=== PATIENT | male | born 1945 | race African-American/Black ===

== ENCOUNTER 2019-03-21 20:14 | Inpatient (IN) | payer OTHER, MEDICARE ==
[~2019-03-21] VITALS: Ht 170.2 cm; Wt 70.0 kg
[2019-03-21 20:29] LABS: Hematocrit 42.8 % (37.0-53.0); Hemoglobin 14.6 g/dL (13.5-17.5); Mean Corpuscular HGB 30.9 pg (26.0-34.0); Mean Corpuscular HGB Conc 34.1 g/dL (31.5-36.5); Mean Corpuscular Volume 91 fL (80-100); Mean Platelet Volume 9.9 fL (9.1-12.4); Platelet Count 315 K/mm3 (150-400); RDW Coefficient Variation 13.2 % (11.7-14.2); RDW Standard Deviation 44.2 fL (35.1-46.3); Red Blood Cell Count 4.73 M/mm3 (4.30-5.90); White Blood Cell Count 20.59 K/mm3 (4.00-11.30)
[2019-03-21 20:44] LABS: International Normalized Ratio 0.98; Prothrombin Time Results 10.4 Sec (9.7-11.5)
[2019-03-21] MEDS ORDERED: AMLO5 PO (20:47)
[2019-03-21] MEDS ORDERED: NAPR500ERA PO (20:48)
[2019-03-21] MEDS ORDERED: Vitamin D2000 UNIT PO (20:48)
[2019-03-21 20:49] LABS: Alanine Aminotransfer (ALT/SGP 23 U/L (12-78); Albumin, Blood 4.3 g/dL (3.4-5.0); Albumin/Globulin Ratio 1.3 (0.8-1.8); Alk Phos 71 U/L (50-136); Anion Gap 9 mmol/L (6-16); Aspartate Aminotrans (AST/SGOT 29 U/L (12-37); Bilirubin, Total 0.5 mg/dL (0.1-1.0); Blood Urea Nitrogen 18 mg/dL (8-24); Bun/Creatinine Ratio 14.2 (12.0-20.0); CHOL/HDL RATIO 5.7; CO2, Blood 24 mmol/L (21-32); Calcium, Blood 9.5 mg/dL (8.5-10.1); Chloride, Blood 108 mmol/L (98-108); Cholesterol 228 mg/dL (50-200); Creatinine, Blood 1.27 mg/dL (0.60-1.20); Globulin, Blood 3.3 g/dL (2.2-4.0); Glomerular Filtration Rate 59 (60-); Glucose, Blood 119 mg/dL (70-99); HDL Cholesterol 40 mg/dL (>39); LDL/HDL RATIO 3.7; Low Density Lipoprotein Chol 150 mg/dL (0-110); Magnesium, Blood 2.1 mg/dL (1.6-2.4); Potassium, Blood 3.5 mmol/L (3.5-5.5); Sodium, Blood 141 mmol/L (136-145); Total Protein, Blood 7.6 g/dL (6.4-8.2); Triglycerides 191 mg/dL (30-160); Troponin I 0.104 ng/mL (0.000-0.040); Very Low Density Lipoprot Chol 38 mg/dL (6-32)
--- NOTE | 2019-03-21 21:40 | NUR ---
ADMIT PT ARRIVES TO ICU 7 VIA BED FROM [facility] FOR STEMI WITH STENT TO MID RCA. HE IS ALERT AND ORIENTED X 3, DENIES CP/PRESSURE, DENIES SOB/DYSPNEA, DENIES NUMBNESS/TINGLING, DENIES N/V. SPEAKING IN FULL SENTANCES, LUNGS CLEAR THROUGHOUT, SATS MID TO HIGH 90S ON ROOM AIR, NO VISIBLE INCREASED WORK OF BREATHING IS NOTED. HRR, SINUS ON MONITOR WITH OCCASIONAL PVCS NOTED, PULSES FULL X 4 EXTREMITIES, SKIN PWD, NO EDEMA NOTED. ABD SOFT, NORMOACTIVE BOWEL TONES NOTED. PT VOIDS CLEAR YELLOW URINE WITHOUT DIFFICULTY. RIGHT GROIN ACCESS SITE NOTED, DRESSING CDI, SCANT AMOUNT OF BLEEDING NOTED AT INSERTION BUT NOT ACTIVE AT THIS TIME, NO VISIBLE BRUISING OR REDNESS, SITE IS SOFT. SPOUSE ARRIVES TO BEDSIDE, STENT CARD PROVIDED TO PT AND SPOUSE, INSTRUCTED LAMINATE, MAKE COPIES, AND TO KEEP IN WALLET, UNDERSTANDING VERBALIZED.
[2019-03-21 23:12] LABS: Troponin I 0.825 ng/mL (0.000-0.040)
--- NOTE | 2019-03-21 23:20 | NUR ---
PTT GREATER THAN 139, PTT REORDERD FOR 0100, SHEATH SITE CONTINUES TO REMAIN STABLE, DRESSING CDI, NO NEW BLEEDING IS NOTED, SITE SOFT, NO SWELLING. PT CONTINUES TO DENY CP/PRESSURE, DENIES SOB/DYSPNEA, STATES THAT HE FEELS WELL AT THIS TIME
--- NOTE | 2019-03-22 01:13 | NUR ---
PTT REMAINS GREATER THAN 40, VITALS REMAIN STABLE, GROIN ACCESS SITE CONTINUES STABLE, PTT REORDERED FOR 0300 WILL CONTINUE TO MONITOR. PT RESTING QUIETLY CONTINUES TO DENY COMPLAINTS AT THIS TIME.
[2019-03-22 03:29] LABS: BASOPHILS ABSOLUTE AUTO 0.03 K/mm3 (0.00-0.23); BASOPHILS PERCENT AUTO 0 % (0-2); EOSINOPHILS ABSOLUTE AUTO 0.01 K/mm3 (0.00-0.68); EOSINOPHILS PERCENT AUTO 0 % (0-6); Hemoglobin 13.2 g/dL (13.5-17.5); IMMATURE GRAN ABSOLUTE AUTO 0.03 K/mm3 (0.00-0.10); IMMATURE GRAN PERCENT AUTO 0 % (0-1); LYMPHOCYTES PERCENT AUTO 15 % (21-46); MONOCYTES ABSOLUTE AUTO 0.69 K/mm3 (0.16-1.47); MONOCYTES PERCENT AUTO 6 % (4-13); Mean Corpuscular HGB 30.8 pg (26.0-34.0); Mean Corpuscular HGB Conc 33.8 g/dL (31.5-36.5); Mean Corpuscular Volume 91 fL (80-100); Mean Platelet Volume 9.5 fL (9.1-12.4); NEUTROPHILS ABSOLUTE AUTO 9.87 K/mm3 (1.96-9.15); NEUTROPHILS PERCENT AUTO 79 % (41-73); Platelet Count 249 K/mm3 (150-400); RDW Coefficient Variation 13.3 % (11.7-14.2); RDW Standard Deviation 44.4 fL (35.1-46.3); Red Blood Cell Count 4.29 M/mm3 (4.30-5.90); White Blood Cell Count 12.43 K/mm3 (4.00-11.30)
--- NOTE | 2019-03-22 03:50 | NUR ---
PTT IS LESS THAN 40, SBP HAS BEEN CONSISTENTLY LESS THAN 160, GROIN ACCESS SITE REMAINS STABLE, HIGH SCHOOL PRINCIPAL NOTIFIED OF PT MEETING CRITERIA FOR SHEATH REMOVAL AT THIS TIME. PLAN TO REMOVE SHEATH WITH HIGH SCHOOL PRINCIPAL.
[2019-03-22 03:51] LABS: Alanine Aminotransfer (ALT/SGP 26 U/L (12-78); Albumin, Blood 3.8 g/dL (3.4-5.0); Albumin/Globulin Ratio 1.3 (0.8-1.8); Alk Phos 64 U/L (50-136); Anion Gap 7 mmol/L (6-16); Aspartate Aminotrans (AST/SGOT 50 U/L (12-37); Bilirubin, Total 0.4 mg/dL (0.1-1.0); Blood Urea Nitrogen 16 mg/dL (8-24); Bun/Creatinine Ratio 14.8 (12.0-20.0); CHOL/HDL RATIO 4.8; CO2, Blood 24 mmol/L (21-32); Calcium, Blood 8.5 mg/dL (8.5-10.1); Chloride, Blood 110 mmol/L (98-108); Cholesterol 195 mg/dL (50-200); Creatinine, Blood 1.08 mg/dL (0.60-1.20); Glomerular Filtration Rate >60 (60-); Glucose, Blood 105 mg/dL (70-99); HDL Cholesterol 41 mg/dL (>39); LDL/HDL RATIO 3.1; Low Density Lipoprotein Chol 126 mg/dL (0-110); Potassium, Blood 3.8 mmol/L (3.5-5.5); Sodium, Blood 141 mmol/L (136-145); Total Protein, Blood 6.8 g/dL (6.4-8.2); Triglycerides 141 mg/dL (30-160); Very Low Density Lipoprot Chol 28 mg/dL (6-32)
--- NOTE | 2019-03-22 04:30 | NUR ---
SHEATH REMOVED FROM RIGHT FEMORAL ACCESS SITE, MANUAL PRESSURE IN PROCESS, PT TOLERATING WELL.
--- NOTE | 2019-03-22 05:00 | NUR ---
MANUAL PRESSURE HELD X 30 MINUTES, PT TOLERATED WELL, HAS BEEN CONVERSATIONAL SPEAKING IN FULL SENTANCES AND DENIES PAIN OTHER THAN AT SITE OF DIRECT PRESSURE. PRESSURE REMOVED FOR DRESSING PLACEMENT AND IMMEDIATE SPURT OF BLOOD FROM ACCESS SITE, MANUAL PRESSURE IMMEDIATELY RESUMED, WILL PLACE FEMSTOP DEVICE.
--- NOTE | 2019-03-22 05:12 | NUR ---
MANUAL PRESSURE TO RIGHT GROIN ACCESS SITE HELD UNTIL FEMSTOP DEVICE PLACED, WILL MONITOR.
--- NOTE | 2019-03-22 05:25 | NUR ---
PT C/O INCREASED PAIN TO RIGHT OUTER THIGH UNDER FEMSTOP STRAP, SITE CONT TO APPEAR STABLE AT THIS TIME. WILL CONTACT HOSPITALIST REGARDING PAIN CONTROL ORDERS PT STATES THAT IT FEELS LIKE FEMSTOP DEVICE IS PRESSING ON HIS BONE.
--- NOTE | 2019-03-22 05:45 | NUR ---
PT CONT TO C/O PAIN TO RIGHT OUTER THIGH UNDER FEMSTOP STRAP, FEMSTOP DEVICE REMOVED AND MANUAL PRESSURE RESUMED. PT C/O SEVERE PAIN WITH MANUAL PRESSURE, TEARFUL AT TIMES, DIRECTOR PROPERTY WILL CONTACT MD REGARDING FURTHER PAIN AND PRESSURE CONTROL.
--- NOTE | 2019-03-22 06:20 | NUR ---
MANUAL PRESSURE HELD X 35 MINUTES, PT PAIN IS IMPROVED AT THIS TIME, PRESSURE CONTROLLED BACK TO BASELINE. PT REPORTS PAIN IS GREATLY IMPROVED AT THIS TIME, SITE REMAINS STABLE WITH REMOVAL OF MANUAL PRESSURE, BRUISING NOTED AT TIME OF REMOVAL OF FEMSTOP DEVICE HAS REMAINED STABLE OF THIS TIME. NATALIA DRESSING PLACED. PT IS RESTING QUIETLY, ACTIVITY RESTRICTIONS REINFORCED.
[2019-03-22 07:21] LABS: Troponin I 11.1 ng/mL (0.000-0.040)
--- NOTE | 2019-03-22 07:30 | NUR ---
ASSUMED CARE OF PATIENT; SEE ASSESSMENT CHARTING FOR DETAILS. PATIENT AWAKE AND ORIENTED X4; DENIES ACUTE PAIN. STATES R GROIN SITE FEELING MUCH BETTER THAN DURING NIGHT. SITE WITH SOME BRUISING BUT TISSUE SOFT AND NO S/SX'S OF HEMATOMA; DRESSING D/I. LUNGS CLEAR; BIOX. 90'S ON ROOM AIR. VOIDING IN URINAL WITHOUT DIFFICULTY. LIMITED APPETITE; STATES HE JUST DOESN'T FEEL JUST RIGHT, YET. DENIES CHESTPAIN OR DYSPNEA; NO NAUSEA AND VSS.
[2019-03-22 07:53] LABS: Creatine Kinase MB 48.4 ng/mL (0.0-3.6); Creatine Kinase MB Index 8.6 (0.0-4.0)
--- NOTE | 2019-03-22 08:26 | NUR ---
AM EKG DONE AT THIS TIME; NO ACUTE CHANGES NOTED. ECHOCARDIOGRAM TECH. ARRIVED AND WILL START ECHO. ONCE EKG COMPLETED.
--- NOTE | 2019-03-22 08:30 | NUR ---
DR. FROST HERE TO EVAL. PATIENT. WANTS RN TO BEGIN RAISING HOB AROUND 10:00 AND SLOWLY ADVANCE ACTIVITY TO OOB; MONITOR GROIN SITE WELL.
--- NOTE | 2019-03-22 10:19 | NUR ---
Echocardiogram completed.
--- NOTE | 2019-03-22 10:20 | NUR ---
HOB UP TO 20 DEGREES; R GROIN SITE INTACT.
--- NOTE | 2019-03-22 11:00 | NUR ---
HOB UP TO 45 DEGREES; NO GROIN SITE ISSUES.
--- NOTE | 2019-03-22 12:00 | NUR ---
HOB IN FOWLERS POSITION; NO GROIN SITE CHANGES.
[2019-03-22 15:08] LABS: Troponin I 11.7 ng/mL (0.000-0.040)
[2019-03-22 15:25] LABS: Creatine Kinase MB 42.6 ng/mL (0.0-3.6); Creatine Kinase MB Index 6.8 (0.0-4.0)
--- NOTE | 2019-03-22 17:00 | NUR ---
OOB WITH STANDBY ASSIST; SAT IN CHAIR; NO ISSUES WITH GROIN SITE AND NO GI UPSET OR VERTIGO. LOTS OF VISITORS AND PATIENT SMILING.
--- NOTE | 2019-03-22 18:30 | NUR ---
SUMMARY: TOLERATING ACTIVITY WELL; BACK IN BED WITHOUT NEED OF ASSIST; R GROIN SITE REMAINS SOFT WITH SOME BRUISING BUT NO HEMATOMA AND NO BLEEDING; DRESSING UNCHANGED. PCU STATUS; NO ROOMS AVAILABLE; WILL REPORT TO ONCOMING RN.
--- NOTE | 2019-03-22 19:30 | NUR ---
PATIENT RESTING QUIETLY IN BED, AWAKENS EASILY. NO COMPLAINTS AT THIS TIME. RIGHT GROIN BRUISED BUT SOFT DRESSING CD&I. PATIENT ABLE TO WALK IN ROOM WITHOUT DIFFICULTY.
--- NOTE | 2019-03-23 05:36 | NUR ---
SUMMARY PATIENT APPEARS TO BE SLEEPING MOST OF THE NIGHT. NO C/O CHEST PAIN OR SOB. RIGHT GROIN SITE REMAINS UNCHANGED WITH BRUISING AREA SOFT DRESSING CD&I.
--- NOTE | 2019-03-23 07:30 | NUR ---
ASSUMED CARE: PT RESTING IN BED, ALERT AND ORIENTED, COOPERATIVE. GROIN SITE WITH BRUISING NOTED BUT SOFT AND NO SIGNS OF FURTHER BLEEDING. NO FURTHER NEEDS OR CONCERNS AT THIS TIME.
[2019-03-23] MEDS ORDERED: ASPI325 PO (08:01)
[2019-03-23] MEDS ORDERED: ATOR40TA PO (08:01)
[2019-03-23] MEDS ORDERED: Plavix75 MG PO (08:02)
[2019-03-23] MEDS ORDERED: METO50 PO (08:03)
--- NOTE | 2019-03-23 09:48 | NUR ---
PT'S IVS DC'D WNL. INSTRUCTIONS GIVEN TO PT AND . DENIED FURTHER QUESTIONS OR CONCERNS. ESCORTED OUT VIA WHEEL CHAIR BY HOSPITAL STAFF.
== END 2019-03-23 09:45 | disposition home or self-care (01) | DRG 247 ==
LOC: ER 20:14 → ICUE 20:31 → ICUW 20:31 → ICUE 21:31
PROVIDERS: Emergency Medicine; ADMIT Internal Medicine Clinical Cardiac Electrophysiology
PROC: 027034Z Dilation of Coronary Artery, One Artery with Drug-eluting Intraluminal Device, Percutaneous Approach (ICD-10-PCS; principal; 2019-03-21)
PROC: 4A023N7 Measurement of Cardiac Sampling and Pressure, Left Heart, Percutaneous Approach (ICD-10-PCS; 2019-03-21)
PROC: B2111ZZ Fluoroscopy of Multiple Coronary Arteries using Low Osmolar Contrast (ICD-10-PCS; 2019-03-21)
DX: I21.19 ST elevation (STEMI) myocardial infarction involving other coronary artery of inferior wall (principal); R65.10 Systemic inflammatory response syndrome (SIRS) of non-infectious origin without acute organ dysfunction; I97.610 Postprocedural hemorrhage of a circulatory system organ or structure following a cardiac catheterization; E78.5 Hyperlipidemia, unspecified; F43.10 Post-traumatic stress disorder, unspecified; L40.9 Psoriasis, unspecified; F32.9 Major depressive disorder, single episode, unspecified; D72.829 Elevated white blood cell count, unspecified; Z79.82 Long term (current) use of aspirin; N18.3 Chronic kidney disease, stage 3 (moderate); I12.9 Hypertensive chronic kidney disease with stage 1 through stage 4 chronic kidney disease, or unspecified chronic kidney disease; M54.9 Dorsalgia, unspecified; G89.29 Other chronic pain
CPT/HCPCS: 36415; 71045; 80053; 80061; 82550; 82553; 83036; 83735; 84443; 84484; 85025; 85027; 85347; 85610; 85730; 86850; 86900; 86901; 93005; 93010; 93306; 93458; 99152; 99153; 99285-25; C1725; C1769; C1874; C1887; C1894; C9606; J0360; J0461; J1644; J2250; J3010; J7030; Q9967